=== PATIENT | female | born 1980 | race Caucasian/White ===

== ENCOUNTER 2016-08-15 16:07 | Emergency (ER) | payer BC, MEDICARE ==
[~2016-08-15] VITALS: Ht 160 cm; Wt 92.1 kg
[~2016-08-15 16:07] MED LIST: ACET500T76 PO; AMIT10TA PO; AMIT25TA; AMIT50TA PO; BACL-19 PO; BACL20TA; CARI350T PO; CLON0.5T PO; CLON1TAB PO; CYCL-259 PO; DULO30CA2 PO; DULO60CA7; DULO60CA7 PO; FURO-93 PO; GABA300C; HORMONE PATCH; HYDR-882 PO; HYDR25CA PO; HYDR25TA11 PO; IBUP200T48; IBUP800T PO; LACT10SO28 PO; LIDO700A5 TD; LIDODERM PATCH 5%; METH500T97 PO; OMEP-110 PO; OMEP20TA62 PO; ONDA4TAB10 PO; ONDA4TAB7 PO; OXYC-223 PO; OXYC-229 PO; OXYC15TA60; OXYC1TAB8; OXYC1TAB8 PO; SERT100T; TIZA2CAP2 PO; TIZA4CAP; TIZA4TAB PO; TOPI50TA35 PO; VARE1TAB21 PO; ZOLP10TA PO; [UNRECOGNIZED DRUG - OTHER]
[2016-08-15 16:28] VITALS: BP 136/92
== END 2016-08-15 17:32 | disposition home or self-care (01) ==
LOC: ED 17:26
DX: J20.8 Acute bronchitis due to other specified organisms (principal); B97.89 Other viral agents as the cause of diseases classified elsewhere; E11.9 Type 2 diabetes mellitus without complications; M54.9 Dorsalgia, unspecified; G89.29 Other chronic pain; E66.9 Obesity, unspecified; M79.7 Fibromyalgia; M54.30 Sciatica, unspecified side; Z90.710 Acquired absence of both cervix and uterus; F17.200 Nicotine dependence, unspecified, uncomplicated
CPT/HCPCS: 71020; 99284

== ENCOUNTER 2016-12-08 20:53 | Emergency (ER) | payer BC, MEDICARE ==
[~2016-12-08] VITALS: Ht 160 cm; Wt 94.1 kg
[~2016-12-08 20:53] MED LIST changes: +ACET500T71 PO; -ACET500T76 PO; +IBUP-1223 PO; -IBUP800T PO; -OXYC-223 PO; -OXYC-229 PO; +OXYC-306 PO; +OXYC-307 PO
[2016-12-08 21:48] LABS: HEMATOCRIT 38.6 % (34.6-47.8); WHITE BLOOD COUNT 14.8 x10^3/uL (3.4-10)
[2016-12-08 22:00] LABS: ASPARTATE AMINO TRANSFERASE 11 U/L (15-37); BLOOD UREA NITROGEN 9 mg/dL (7-18)
[2016-12-08] MEDS ORDERED: HYDROmorphone 1 MG/ML, 1ML IVPush ONE (22:00)
[2016-12-08] MEDS ORDERED: SODIUM CHLORIDE FLUSH 10ML SYR IVF ONE (22:00)
[2016-12-08] MEDS ORDERED: ONDANSETRON 2MG/ML, 2ML ONE (22:27)
[2016-12-08] MEDS ORDERED: HYDROmorphone 1 MG/ML, 1ML ONE (22:27)
[2016-12-08] MEDS ORDERED: CEFDINIR 300 MG CAPSULE PO ONE (23:30)
[2016-12-08 23:33] VITALS: BP 124/78
== END 2016-12-08 23:36 | disposition home or self-care (01) ==
LOC: ED 23:30
DX: N10 Acute pyelonephritis (principal); E11.9 Type 2 diabetes mellitus without complications; M79.7 Fibromyalgia; I10 Essential (primary) hypertension; M32.9 Systemic lupus erythematosus, unspecified; F17.200 Nicotine dependence, unspecified, uncomplicated; Z90.710 Acquired absence of both cervix and uterus; Z90.721 Acquired absence of ovaries, unilateral; Z88.8 Allergy status to other drugs, medicaments and biological substances
CPT/HCPCS: 36415; 74176; 80053; 81001; 83690; 85025; 87086; 96374; 99285; J1170

== ENCOUNTER 2017-07-16 11:23 | Emergency (ER) | payer BC, MEDICARE ==
[~2017-07-16] VITALS: Ht 160 cm; Wt 90.9 kg
[~2017-07-16 11:23] MED LIST changes: -IBUP200T48; +IBUP200T49
[2017-07-16 11:35] VITALS: BP 127/89
== END 2017-07-16 13:24 | disposition left against medical advice (07) ==
LOC: ED 13:15
DX: R10.2 Pelvic and perineal pain (principal); Z53.21 Procedure and treatment not carried out due to patient leaving prior to being seen by health care provider

== ENCOUNTER 2017-08-31 06:51 | Inpatient (IN) | payer BC, MEDICARE ==
[~2017-08-31] VITALS: Ht 160 cm; Wt 95.7 kg
[~2017-08-31 06:51] MED LIST changes: +BUPIVACAINE/PF 0.25% ONE; +FENT-58 TD; +META-23 PO; +OXYC10TA6 PO
[2017-08-31] MEDS ORDERED: LACTATED RINGERS 1,000 ML IV SCH (07:39)
[2017-08-31 07:48] VITALS: BP 102/70
[2017-08-31 08:08] LABS: HCG UR SG 1.011 (1.003-1.030)
[2017-08-31] MEDS ORDERED: FENTANYL PF 250 MCG/5ML ONE (09:12)
[2017-08-31] MEDS ORDERED: MIDAZOLAM 1 MG/ML, 2ML ONE (09:12)
[2017-08-31] MEDS ORDERED: OxyconTIN ER 10 MG TAB.ER ONE (10:44)
[2017-08-31] MEDS ORDERED: ACETAMINOPHEN 500 MG TABLET ONE (10:45)
[2017-08-31] MEDS ORDERED: GABAPENTIN 300 MG CAPSULE ONE (10:45)
[2017-08-31] MEDS ORDERED: ROCURONIUM 10MG/ML,5ML ONE (11:09)
[2017-08-31] MEDS ORDERED: ONDANSETRON 2MG/ML, 2ML ONE (11:09)
[2017-08-31] MEDS ORDERED: CEFAZOLIN 1,000 MG ONE (11:09)
[2017-08-31] MEDS ORDERED: NEOSTIGMINE 1 MG/ML, 10ML ONE (11:09)
[2017-08-31] MEDS ORDERED: DEXAMETHASONE 4 MG/ML, 1ML ONE (11:09)
[2017-08-31] MEDS ORDERED: PROPOFOL 10 MG/ML, 20ML ONE (11:09)
[2017-08-31] MEDS ORDERED: GLYCOPYRROLATE 0.2MG/1ML, 5ML ONE (11:09)
[2017-08-31] MEDS ORDERED: PROMETHAZINE 25 MG SUPP PR PRN (12:00)
[2017-08-31] MEDS ORDERED: ALBUTEROL SULFATE 2.5 MG/3 ML NPPB PRN (12:00)
[2017-08-31] MEDS ORDERED: MEPERIDINE/PF 25MG/0.5ML IVPush PRN (12:00)
[2017-08-31] MEDS ORDERED: LABETALOL 5MG/ML, 20ML IV PRN (12:00)
[2017-08-31] MEDS ORDERED: OXYcodone 5 MG/5 ML ORAL.SOL UDC PO PRN (12:00)
[2017-08-31] MEDS ORDERED: MORPHINE SULFATE 4 MG/ML, 1ML IVPush PRN ×2 (12:00→15:30)
[2017-08-31] MEDS ORDERED: PROMETHAZINE 25 MG/ML, 1ML IV PRN (12:00)
[2017-08-31] MEDS ORDERED: hydrALAzine 20 MG/ML, 1ML IV PRN (12:00)
[2017-08-31] MEDS ORDERED: LORazepam 2 MG/ML, 1ML ONE (12:50)
[2017-08-31] MEDS ORDERED: HYDROmorphone 1 MG/ML, 1ML ONE ×2 (12:50→13:17)
[2017-08-31] MEDS: LORazepam 2 MG/ML, 1ML IVPush PRN ×2 (12:55→13:10)
[2017-08-31] MEDS: HYDROmorphone 1 MG/ML, 1ML IV PRN ×4 (12:55→14:00)
[2017-08-31] MEDS ORDERED: FENTANYL PF 100 MCG/2ML ONE (14:19)
[2017-08-31] MEDS: FENTANYL PF 100 MCG/2ML IV PRN ×2 (14:21→14:26)
[2017-08-31] MEDS ORDERED: OXYcodone/APAP 7.5/325MG TABLET PO PRN (15:30)
[2017-08-31] MEDS ORDERED: METOCLOPRAMIDE 10MG TABLET PO PRN (15:30)
[2017-08-31] MEDS ORDERED: KETOROLAC 30 MG/1 ML IVPush SCH (15:30)
[2017-08-31] MEDS ORDERED: KETOROLAC 30 MG/1 ML ONE (15:33)
== END 2017-08-31 17:45 | disposition home or self-care (01) | DRG 750 ==
LOC: OUT 06:51 → 4NOR 12:27 → OUT 17:45
PROVIDERS: ADMIT Specialist; ATTEND Specialist
PROC: 8E0W4CZ Robotic Assisted Procedure of Trunk Region, Percutaneous Endoscopic Approach (ICD-10-PCS; 2017-08-31)
PROC: 0DNW4ZZ Release Peritoneum, Percutaneous Endoscopic Approach (ICD-10-PCS; principal; 2017-08-31 09:30)
DX: N73.6 Female pelvic peritoneal adhesions (postinfective) (principal); N83.202 Unspecified ovarian cyst, left side; F17.210 Nicotine dependence, cigarettes, uncomplicated; N99.83 Residual ovary syndrome; G89.29 Other chronic pain
CPT/HCPCS: 74018; 81025; 88305; J0690; J1100; J1170; J1885; J2250; J2405; J2704; J2710; J3010; J3490; J2060; J7120

== ENCOUNTER 2017-09-27 21:23 | Emergency (ER) | payer BC, MEDICARE ==
[~2017-09-27] VITALS: Ht 160 cm; Wt 88.6 kg
[~2017-09-27 21:23] MED LIST changes: -BUPIVACAINE/PF 0.25% ONE
[2017-09-27] MEDS ORDERED: ONDANSETRON 2MG/ML, 2ML ONE (23:29)
[2017-09-27] MEDS ORDERED: MORPHINE SULFATE 4 MG/ML, 1ML ONE (23:29)
[2017-09-27] MEDS ORDERED: ONDANSETRON 2MG/ML, 2ML IVPush ONE (23:30)
[2017-09-27] MEDS ORDERED: SODIUM CHLORIDE FLUSH 10ML SYR IVF ONE (23:30)
[2017-09-27] MEDS ORDERED: SODIUM CHLORIDE 0.9% 1,000ML IVBOLUS ONE (23:30)
[2017-09-27] MEDS ORDERED: MORPHINE SULFATE 4 MG/ML, 1ML IVPush PRN (23:30)
[2017-09-27 23:31] LABS: BASOPHILS # (AUTO) 0.03 x10^3/uL (0-0.1); BASOPHILS % (AUTO) 0 % (0-1); EOSINOPHILS # (AUTO) 0.11 x10^3/uL (0-0.4); EOSINOPHILS % (AUTO) 1 % (1-7); LYMPHOCYTES % (AUTO) 36 % (22-44); MD NO; MEAN CORPUSCULAR HEMOGLOBIN 28.1 pg (27.0-34.8); MEAN CORPUSCULAR HGB CONC 32.9 g/dL (32.4-35.8); MEAN CORPUSCULAR VOLUME 85.3 fL (80-100); MEAN PLATELET VOLUME 8.4 fL (7.4-10.4); MONOCYTES # (AUTO) 0.58 x10^3/uL (0.2-0.8); MONOCYTES % (AUTO) 5 % (2-9); NEUTROPHILS # (AUTO) 7.33 x10^3/uL (1.8-6.8); NEUTROPHILS % (AUTO) 58 % (42-75); PLATELET COUNT 255 x10^3/uL (130-400); RED BLOOD COUNT 4.88 x10^6/uL (3.82-5.3); RED CELL DISTRIBUTION WIDTH 13.6 % (9.6-15.2)
[2017-09-27 23:42] LABS: ALANINE AMINOTRANSFERASE 43 U/L (12-78); ALBUMIN 3.8 g/dL (3.4-5.0); ANION GAP 5 mmol/L (5-15); CALCIUM 9.5 mg/dL (8.5-10.1); CHLORIDE 112 mmol/L (98-107); CREATININE 0.74 mg/dL (0.55-1.02)
[2017-09-27 23:45] LABS: ALKALINE PHOSPHATASE 71 U/L (45-117); BILIRUBIN,TOTAL 0.3 mg/dL (0.2-1.0); TOTAL PROTEIN 7.4 g/dL (6.4-8.2)
[2017-09-27 23:54] LABS: CULTURE INDICATED? YES; MICROSCOPIC INDICATED
[2017-09-28 01:40] VITALS: BP 124/82
[2017-09-28] MEDS ORDERED: OMNIPAQUE 350 MG/ML, 100ML BOTTLE ONE (02:22)
== END 2017-09-28 02:07 | disposition home or self-care (01) ==
LOC: ED 23:32
DX: R10.31 Right lower quadrant pain (principal); R93.5 Abnormal findings on diagnostic imaging of other abdominal regions, including retroperitoneum; E11.9 Type 2 diabetes mellitus without complications; M79.7 Fibromyalgia; M32.9 Systemic lupus erythematosus, unspecified; F17.210 Nicotine dependence, cigarettes, uncomplicated
CPT/HCPCS: 36415; 74177; 80053; 81001; 83690; 85025; 87086; 96374; 96375; 99285; J2405; J7030; Q9967

== ENCOUNTER 2017-11-14 21:42 | Emergency (ER) | payer BC, MEDICARE ==
[~2017-11-14] VITALS: Ht 160 cm; Wt 90.0 kg
[2017-11-14] MEDS ORDERED: ZIPRASIDONE 20 MG INJ IM ONE ×2 (21:58→22:00)
[2017-11-14 23:19] VITALS: BP 99/51
== END 2017-11-14 23:23 | disposition left against medical advice (07) ==
LOC: ED 22:17
DX: S06.0X9A Concussion with loss of consciousness of unspecified duration, initial encounter (principal); F44.5 Conversion disorder with seizures or convulsions; F10.120 Alcohol abuse with intoxication, uncomplicated; F41.9 Anxiety disorder, unspecified; W18.39XA Other fall on same level, initial encounter; Y93.89 Activity, other specified; Y92.89 Other specified places as the place of occurrence of the external cause; Y99.8 Other external cause status; Z91.14 Patient's other noncompliance with medication regimen; I10 Essential (primary) hypertension; E11.9 Type 2 diabetes mellitus without complications; M32.9 Systemic lupus erythematosus, unspecified; M79.7 Fibromyalgia; G89.29 Other chronic pain; Z90.710 Acquired absence of both cervix and uterus; Z98.51 Tubal ligation status; Z88.8 Allergy status to other drugs, medicaments and biological substances
CPT/HCPCS: 70450; 72125; 93005; 99284

== ENCOUNTER 2017-12-19 19:17 | Emergency (ER) | payer BC, MEDICARE ==
[~2017-12-19] VITALS: Ht 160 cm; Wt 91.4 kg
[2017-12-19 20:13] LABS: BASOPHILS # (AUTO) 0.18 x10^3/uL (0-0.1); BASOPHILS % (AUTO) 1 % (0-1); EOSINOPHILS # (AUTO) 0.16 x10^3/uL (0-0.4); EOSINOPHILS % (AUTO) 1 % (1-7); LYMPHOCYTES % (AUTO) 33 % (22-44); MD NO; MEAN CORPUSCULAR HEMOGLOBIN 28.4 pg (27.0-34.8); MEAN CORPUSCULAR HGB CONC 33.6 g/dL (32.4-35.8); MEAN CORPUSCULAR VOLUME 84.6 fL (80-100); MEAN PLATELET VOLUME 7.6 fL (7.4-10.4); MONOCYTES # (AUTO) 0.64 x10^3/uL (0.2-0.8); MONOCYTES % (AUTO) 5 % (2-9); NEUTROPHILS # (AUTO) 7.75 x10^3/uL (1.8-6.8); NEUTROPHILS % (AUTO) 60 % (42-75); PLATELET COUNT 335 x10^3/uL (130-400); RED CELL DISTRIBUTION WIDTH 14.3 % (9.6-15.2)
[2017-12-19 20:25] LABS: ALBUMIN 3.3 g/dL (3.4-5.0); ANION GAP 7 mmol/L (5-15); CALCIUM 8.5 mg/dL (8.5-10.1); CHLORIDE 108 mmol/L (98-107); CREATININE 0.77 mg/dL (0.55-1.02)
[2017-12-19 20:29] LABS: TROPONIN I < 0.015 ng/mL (0.000-0.045)
[2017-12-19 20:48] VITALS: BP 148/86
[2017-12-19] MEDS ORDERED: KETOROLAC 30 MG/1 ML ONE (21:11)
[2017-12-19] MEDS ORDERED: IBUPROFEN 200 MG TABLET ONE (21:14)
[2017-12-19] MEDS ORDERED: IBUPROFEN 200 MG TABLET PO ONE (21:30)
[2017-12-19] MEDS ORDERED: KETOROLAC 30 MG/1 ML IM ONE (21:30)
[2017-12-19] MEDS ORDERED: ONDANSETRON ODT 4 MG ONE (22:43)
== END 2017-12-19 21:31 | disposition home or self-care (01) ==
LOC: ED 21:22
DX: R07.2 Precordial pain (principal); G89.29 Other chronic pain; I10 Essential (primary) hypertension; E11.9 Type 2 diabetes mellitus without complications; M79.7 Fibromyalgia; F17.210 Nicotine dependence, cigarettes, uncomplicated; R05 Cough
CPT/HCPCS: 36415; 71045; 80048; 82040; 84484; 84703; 85025; 85379; 93005; 99285